=== PATIENT | female | born 1940 | race Caucasian/White ===

== ENCOUNTER 2016-11-13 05:13 | Inpatient (IN) | payer OTHER, MEDICARE ==
[2016-10-24 15:07] VITALS: Ht 170.2 cm; Wt 83.5 kg
--- NOTE | 2016-10-24 15:47 | PAT Medication Instructions ---
Service Date Oct 24, 2016. Current Home Medication List Acetaminophen (Tylenol), 650 MG PO DAILY PRN for Pain Aspirin (Aspirin Ec), 81 MG PO QPM Esomeprazole Magnesium (Nexium), 40 MG PO BID Fish Oil (Worth-3), 1 CAP PO QAM Latanoprost (Xalatan 0.005% Oph Gifty), 1 DROPS OPB HS Loratadine (Claritin), 5 MG PO DAILY PRN for ALLERGIC REACTION Metformin Hcl (Glucophage), 500 MG PO QAM Metoprolol Succinate (Toprol Xl), 25 MG PO QPM Multiple Vitamins W/ Minerals (Centrum Silver Ultra Wome), 1 TAB PO QAM Potassium Chloride (Micro-K Ext Rel), 10 MEQ PO BID Ranitidine (Zantac), 150 MG PO DAILY PRN for Anxiety Valsartan/Hctz (Diovan Hct 160MG/12.5MG), 1 TAB PO QAM Medication Instructions For Your Scheduled Surgery - Hold the following medications 2 weeks prior to surgery: Fish Oil (Worth-3), 1 CAP PO QAM - Hold the following medications 48 hours prior to surgery: Metformin Hcl (Glucophage), 500 MG PO QAM - Hold the following medications the morning of surgery: Potassium Chloride (Micro-K Ext Rel), 10 MEQ PO BID Ranitidine (Zantac), 150 MG PO DAILY PRN for Anxiety Multiple Vitamins W/ Minerals (Centrum Silver Ultra Wome), 1 TAB PO QAM Loratadine (Claritin), 5 MG PO DAILY PRN for ALLERGIC REACTION Valsartan/Hctz (Diovan Hct 160MG/12.5MG), 1 TAB PO QAM - Take the following medications the morning of surgery with a sip of water: Acetaminophen (Tylenol), 650 MG PO DAILY PRN for Pain (if needed) Esomeprazole Magnesium (Nexium), 40 MG PO BID - Take the following medications as scheduled the night before surgery: Potassium Chloride (Micro-K Ext Rel), 10 MEQ PO BID Ranitidine (Zantac), 150 MG PO DAILY PRN for Anxiety (if needed) Loratadine (Claritin), 5 MG PO DAILY PRN for ALLERGIC REACTION (if needed) Latanoprost (Xalatan 0.005% Oph Gifty), 1 DROPS OPB HS Aspirin (Aspirin Ec), 81 MG PO QPM (okay ot continue per surgeon) Esomeprazole Magnesium (Nexium), 40 MG PO BID Acetaminophen (Tylenol), 650 MG PO DAILY PRN for Pain (if needed) Metoprolol Succinate (Toprol Xl), 25 MG PO QPM If you have any questions please call us at [phone] or [phone] or [phone]
[2016-10-24 15:58] LABS: BASO % 0.3 %; BASO ABS # 0.02 K/uL (0-0.2); COMPLETE YES; EOS % 3.3 %; HEMATOCRIT 40.9 % (37-47); IG% 0.1 %; LYMPH % 32.8 %; LYMPH ABS # 2.46 K/uL (1.2-3.4); MEAN CELL VOLUME 93.2 fL (80-100); MEAN CORPUSCULAR HEMOGLOBIN 31.9 pg (25-34); MEAN CORPUSCULAR HGB CONC 34.2 g/dl (32-36); MEAN PLATELET VOLUME 9.5 fL (7.4-10.4); MONO % 6.8 %; NEUT % 56.7 %; PLATELET COUNT 224 K/uL (130-400); RED BLOOD COUNT 4.39 M/uL (4.2-5.4); WHITE BLOOD COUNT 7.49 K/uL (4.8-10.8)
[2016-10-24 15:58] LABS: URINE APPEARANCE CLEAR (CLEAR); URINE BILIRUBIN NEG (NEG); URINE COLOR YELLOW; URINE NITRITE NEG (NEG); URINE PH 5.5 (4.5-7.5); URINE SPECIFIC GRAVITY 1.015 (1.000-1.030); UROBILINOGEN NEG (NEG)
[2016-10-24 16:01] LABS: MANUAL MICROSCOPIC REQUIRED? NO; REVIEW REQ? NO
[2016-10-24 16:06] LABS: BUN/CREATININE RATIO 15.9 (10-20); CALCIUM 9.2 mg/dl (8.5-10.1); CREATININE 0.95 mg/dl (0.60-1.20)
[2016-10-24 16:09] LABS: PROTHROMBIN TIME (PATIENT) 10.4 SECONDS (9.0-12.0)
[2016-10-25 07:32] LABS: ESTIMATED AVERAGE GLUCOSE 137 mg/dl; HA1C FLAG Normal (Normal)
--- NOTE | 2016-11-11 19:24 | HISTORY & PHYSICAL EXAMINATION ---
DATE OF ADMISSION: 11/13/2016 HISTORY OF PRESENT ILLNESS: The patient presents Mary Reina for bilateral total knee arthroplasties. 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 She has failed attempts at conservative management including physical therapy, anti-inflammatories, relative rest, activity modification and presents for left and right total knee arthroplasty after failing conservative management. FAMILY HISTORY: Otherwise unremarkable and noncontributory. SOCIAL HISTORY: The patient denies a history of smoking, alcohol or recreational drug use. PAST SURGICAL HISTORY: Significant for tubal ligation, hysterectomy, previous oral surgery. ALLERGIES: Include some pain medications, almonds, ____ IODINE DYE. MEDICATIONS: Include atenolol 25 mg b.i.d., Diovan 160/25 mg p.o. q.a.m., potassium 10 mEq p.o. daily, metformin 500 mg p.o. q.a.m., fish oil daily, aspirin, p.r.n. REVIEW OF SYSTEMS: ____ pertinent positives. PAST MEDICAL HISTORY: Significant for hypertension, hypercholesterolemia and diabetes. PHYSICAL EXAMINATION: GENERAL: Reveals a very pleasant 76-year-old female, alert and oriented x3, with no acute distress. HEENT: Unremarkable, atraumatic, normocephalic. HEART: Regular at 70 beats per minute. No murmurs noted. LUNGS: Clear. No rales, rhonchi, or wheezes noted. ABDOMEN: Soft ____ bowel sounds present in all 4 quadrants. RECTAL: No rectal examination was performed. MUSCULOSKELETAL: She has severe end-stage tricompartmental degenerative disease of bilateral knees. IMPRESSION AND PLAN: She has failed attempts at conservative management including physical therapy, anti-inflammatories, relative rest ____ and presents for total knee arthroplasty after failing the above conservative management. The patient presents for total knee arthroplasty, bilaterally. Postoperative pain management, DVT prophylaxis will be required and evaluated on an as-needed basis.
[2016-11-13] VITALS (8 sets, daily range): BP systolic 116–161; BP diastolic 69–95; PULSE 57–75; TEMP 36.3–36.8; O2SAT 91–99
[~2016-11-13] VITALS: Ht 170.2 cm; Wt 83.5 kg
[~2016-11-13 05:13] MED LIST: ACET-1311 PO; ASPI81TA28 PO; CLR10 PO; GLC/500 PO; LATA0.5S OPB; METO25TA3 PO; MULT-614 PO; NXM/40 PO; OMEG10007 PO; POTA10CA28 PO; VALS160T58 PO; ZNTT/150 PO
[2016-11-13] MEDS ORDERED: METOCLOPRAMIDE HCL 10 MG TAB PO SCH (06:00)
[2016-11-13] MEDS ORDERED: ACETAMINOPHEN 500 MG TAB PO SCH (06:00)
[2016-11-13] MEDS ORDERED: GABAPENTIN 300 MG CAP PO SCH (06:00)
[2016-11-13] MEDS ORDERED: ROPIVACAINE 5MG/ML 30 ML 150 MG, BUPIVACAINE/EPINEPHR 0.5% MPF 30 ML, KETOROLAC TROMETH... INFIL SCH ×7 (06:00)
[2016-11-13] MEDS ORDERED: LACTATED RINGER'S 1000ML 1,000 ML IV SCH (06:00)
[2016-11-13] MEDS ORDERED: FAMOTIDINE 20 MG TAB PO SCH (06:00)
[2016-11-13] MEDS ORDERED: CEFAZOLIN 2000 MG/60 ML D5W IV SCH (06:00)
[2016-11-13] MEDS ORDERED: LACTATED RINGER'S 1000ML IV SCH (06:00)
[2016-11-13] MEDS ORDERED: LACTATED RINGER'S 1000ML 500 ML IV SCH (06:00)
[2016-11-13] MEDS: ROPIVACAINE 5MG/ML 30 ML 150 MG, BUPIVACAINE/EPINEPHR 0.5% MPF 30 ML, KETOROLAC TROMETH... INFIL SCH ×14 (06:01→09:00)
[2016-11-13] MEDS: TRANEXAMIC ACID INJ 1,000 MG in SODIUM CHLORIDE 0.9% 100ML 100 ML IV SCH ×2 (06:30→07:39)
[2016-11-13] MEDS ORDERED: BUPIVACAINE 0.25% 30 ML VIAL ONE (06:36)
[2016-11-13] MEDS ORDERED: BUPIVACAINE 0.5 % 5 MG/1 ML PF 10ML VIAL ONE (06:36)
[2016-11-13] MEDS ORDERED: LIDOCAINE HCL 2% 2 ML VIAL (20MG/ML) ONE (06:40)
[2016-11-13] MEDS ORDERED: MIDAZOLAM HCL 1 MG/ML 2ML VIAL ONE ×3 (06:40→08:51)
[2016-11-13] MEDS ORDERED: PROPOFOL IV EMULSION 10 MG/ML 20 ML VIAL IV ONE (06:40)
[2016-11-13] MEDS ORDERED: BACITRACIN 50000 UNIT VIAL ONE (06:52)
[2016-11-13] MEDS ORDERED: POVIDONE-IODINE OP SOLN 30 ML BTL ONE (06:52)
[2016-11-13] MEDS ORDERED: ORTHO JOINT ANESTHETIC ONE (06:52)
--- NOTE | 2016-11-13 07:07 | History & Physical Bridge Note ---
H&P Re-Evaluation Bridge Note: I have examined the patient, reviewed the History & Physical and in the interval since the performance of the History & Physical I have noted the following changes of clinical significance: No changes noted
[2016-11-13] MEDS ORDERED: DiphenhydrAMINE HCL 50 MG/ML VIAL ONE (08:35)
[2016-11-13] MEDS ORDERED: ONDANSETRON INJ 2 MG/ML 2 ML VIAL IV PRN ×2 (08:45→11:15)
[2016-11-13] MEDS ORDERED: EpHEDrine SULFATE INJ 50 MG/ML AMP IV PRN (08:45)
[2016-11-13] MEDS ORDERED: ATROPINE SULFATE 0.1 MG/ML 5ML SYR IV PRN (08:45)
--- NOTE | 2016-11-13 10:15 | [facility] Operative Report ---
Operative Report Operative Date Nov 13, 2016. Pre-Operative Diagnosis Severe End-Stage Tricompartmental Degenerative Disease of Bilateral Knees Post-Operative Diagnosis Severe End-Stage Tricompartmental Degenerative Disease of Bilateral Knees Procedure(s) Performed Bilateral Total Knee Arthroplasty utilizing Allred & Nephew journey 2 long block total knee arthroplasty right size 4 femur 3 tibia 10 Cha 32 oval patella left size 4 femur 3 tibia Cha [address] David Hamlin Continuous Crusher Operator Surgeon(s) Clotilde VILLALOBOSC Estimated Blood Loss 5cc for left knee; 5cc for right knee Findings Presents with severe degenerative joint disease bilaterally she's failed CONSERVATIVE management including physical therapy and anti-inflammatories relative rest activity modification transferred total knee arthroplasty bilaterally Specimens Permanent: A. Left Knee Bone and Tissue B. Right Knee Bone and Tissue Complication(s) None Disposition Recovery Room / PACU Indications Patient presents after failing attempts at conservative management for her bilateral varus alignment DJD knees presents for bilateral total knee arthroplasty failing attempts at conservative management injections cortical steroid injections viscous supplementations relative rest and bracing Description of Procedure After proper prepping and draping of the bilateral lower extremities, an anterior midline incision was made over the region of the extensor extensor mechanism of the left knee. After meticulous hemostasis was obtained and maintained in subcutaneous tissues a medial parapatellar incision was made The patella was subluxed lateralward the medial lateral gutter were cleaned from any hypertrophic synovitis and scar tissue of the distal femoral block was placed and the distal femoral osteotomy cut was made subsequently the chamfers anterior and posterior osteotomy cuts were made utilizing the 4-in-1 block the tibia was subsequently subluxed anteriorward medial and ateral meniscal remnants were excised in their entirety remnants of the anterior and posterior cruciate ligaments were excised in their entirety excellent exposure of the proximal tibia was obtained the tibial osteotomy guide was placed on the proximal tibial osteotomy cut was made once again the knee was irrigated with copious amounts of sterile saline solution the patella was subsequently everted lateralward thickened scar tissue around the patella was removed the patella was subsequently cut utilizing a freehand technique and was drilled prepared for final preparation and placement of patella socially flexion-extension gaps were checked and the equal and symmetric trials were placed to the appropriate femoral and tibial trials with poly-spacer being placed for equal flexion and extension gaps and full range of motion including extension to 0 and flexion to 140 the trial components after having been taken to recovery range of motion was subsequently removed meticulous hemostasis was obtained and maintained subsequently a knee block injection of joint cocktail including ropivacaine 0.5 % 150 mg. Bupivacaine 0.5% epinephrine 1-200,030 mL's toradol 30 mg dexamethasone 4 mg ketamine 10 mg clonidine 100 micrograms normal saline solution 30 mg was infiltrated into the soft tissues of the posterior knee medial lateral gutters and periosteal synovium special attention was paid to protect neurovascular structures at all times subsequently trial components having been removed the knee was irrigated with sterile saline solution. debris was removed the proximal tibia was subsequently prepared and was made ready for the placement of the tibial component tibial component was also cemented and tamped into position the femoral component was subsequently placed and cemented in the position the patellar component was subsequently cemented in position because hemostasis once again obtained and maintained wound having been thoroughly irrigated with debridement and debridement lavage was performed as well as a medial parapatellar incision closed with #1 Vicryl in interrupted fashion subcutaneous was closed with #2 Vicryl skin was closed with skin clips Next, an anterior midline incision was made over the region of the extensor extensor mechanism of the right knee. After meticulous hemostasis was obtained and maintained in subcutaneous tissues a medial parapatellar incision was made The patella was subluxed lateralward the medial lateral gutter were cleaned from any hypertrophic synovitis and scar tissue of the distal femoral block was placed and the distal femoral osteotomy cut was made subsequently the chamfers anterior and posterior osteotomy cuts were made utilizing the 4-in-1 block the tibia was subsequently subluxed anteriorward medial and ateral meniscal remnants were excised in their entirety remnants of the anterior and posterior cruciate ligaments were excised in their entirety excellent exposure of the proximal tibia was obtained the tibial osteotomy guide was placed on the proximal tibial osteotomy cut was made once again the knee was irrigated with copious amounts of sterile saline solution the patella was subsequently everted lateralward thickened scar tissue around the patella was removed the patella was subsequently cut utilizing a freehand technique and was drilled prepared for final preparation and placement of patella socially flexion-extension gaps were checked and the equal and symmetric trials were placed to the appropriate femoral and tibial trials with poly-spacer being placed for equal flexion and extension gaps and full range of motion including extension to 0 and flexion to 140 the trial components after having been taken to recovery range of motion was subsequently removed meticulous hemostasis was obtained and maintained subsequently a knee block injection of joint cocktail including ropivacaine 0.5 % 150 mg. Bupivacaine 0.5% epinephrine 1-200,030 mL's toradol 30 mg dexamethasone 4 mg ketamine 10 mg clonidine 100 micrograms normal saline solution 30 mg was infiltrated into the soft tissues of the posterior knee medial lateral gutters and periosteal synovium special attention was paid to protect neurovascular structures at all times subsequently trial components having been removed the knee was irrigated with sterile saline solution. debris was removed the proximal tibia was subsequently prepared and was made ready for the placement of the tibial component tibial component was also cemented and tamped into position the femoral component was subsequently placed and cemented in the position the patellar component was subsequently cemented in position because hemostasis once again obtained and maintained wound having been thoroughly irrigated with debridement and debridement lavage was performed as well as a medial parapatellar incision closed with #1 Vicryl in interrupted fashion subcutaneous was closed with #2 Vicryl skin was closed with skin clips.. PA-C was necessary for prepping and drapping as well as wound closure of deep fascia Sub cutaneous tissue and skin and was necessary for the case. A sterile compressive dressings were placed, patient was taken to recovery in stable condition of report dictated by Boubacar I attest to the content of the Intraoperative Record and any orders documented therein. Any exceptions are noted below. I attest to the content of the Intraoperative Record and any orders documented therein. Any exceptions are noted below.
[2016-11-13] MEDS ORDERED: MEPERIDINE HCL 25 MG/ML CARP ONE (10:52)
[2016-11-13] MEDS ORDERED: MEPERIDINE HCL 25 MG/ML CARP IV PRN (11:00)
[2016-11-13] MEDS ORDERED: D5W AND 1/2NSS + 20MEQ KCL 1,000 ML IV SCH (11:05)
[2016-11-13] MEDS ORDERED: MAGNESIUM HYDROXIDE SUSP 30 ML UDC PO PRN (11:15)
[2016-11-13] MEDS ORDERED: SOD PHOSPHATE/SOD BIPHOSPHATE ENEMA 132 ML BTL PR PRN (11:15)
[2016-11-13] MEDS ORDERED: ALUMINUM/MAGNESIUM/SIMETH (MAALOX MAX) 30 ML UDC PO PRN (11:15)
[2016-11-13] MEDS ORDERED: BISACODYL 10 MG SUPP PR PRN (11:15)
[2016-11-13] MEDS ORDERED: ZOLPIDEM TARTRATE 5 MG TAB PO PRN (11:15)
--- NOTE | 2016-11-13 11:26 | Anesthesiology Progress Note ---
Anesthesia Post Op Note Date & Time Nov 13, 2016 at 11:26 Vital Signs Pain Intensity: 0 Vital Signs Past 12 Hours Date Time Temp Pulse Resp B/P (MAP) Pulse Ox O2 Delivery O2 Flow Rate FiO2 11/13/16 11:15 36.7 56 12 121/67 96 Nasal Cannula 2 11/13/16 11:00 58 12 119/71 97 Nasal Cannula 2 11/13/16 10:50 61 12 130/62 99 Nasal Cannula 2 11/13/16 10:41 36.0 56 16 145/70 98 Nasal Cannula 2 11/13/16 06:20 36.7 63 18 161/95 96 Room Air Notes Mental Status: alert / awake / arousable, participated in evaluation Pt Amnestic to Procedure: Yes Nausea / Vomiting: adequately controlled Pain: adequately controlled Airway Patency, RR, SpO2: stable & adequate BP & HR: stable & adequate Hydration State: stable & adequate Neuraxial Anesthesia: was administered, sensory block is resolving Anesthetic Complications: no major complications apparent
--- NOTE | 2016-11-13 11:53 | DIAGNOSTIC IMAGING REPORT ---
LEFT KNEE 2 VIEWS History: Left total knee arthroplasty. Degenerative arthritis. Postop. FINDINGS: The patient is status post a left total knee arthroplasty. The hardware is intact. No fracture or dislocation. Surgical drains are in place. IMPRESSION: Left total knee arthroplasty. No evidence for hardware complication. Electronically signed by: Iam Young M.D. 11/13/2016 11:52 AM Dictated Date/Time: 11/13/2016 11:52 AM
[2016-11-13] MEDS ORDERED: PHARMACY GLYCEMIC MGMT CONSULT PRN (11:54)
--- NOTE | 2016-11-13 12:00 | DIAGNOSTIC IMAGING REPORT ---
RIGHT KNEE 2 VIEWS History: Right total knee arthroplasty. Degenerative arthritis. Postop. FINDINGS: The patient is status post a right total knee arthroplasty. The hardware is intact. No fracture or dislocation. Surgical drains are in place. IMPRESSION: Right total knee arthroplasty. No evidence for hardware complication. Electronically signed by: Iam Young M.D. 11/13/2016 11:59 AM Dictated Date/Time: 11/13/2016 11:58 AM
[2016-11-13] MEDS: SODIUM CHLORIDE 0.9% 1000ML 1,000 ML IV SCH ×2 (13:24→22:37)
[2016-11-13] MEDS: ACETAMINOPHEN 500 MG TAB PO SCH ×2 (13:45→21:31)
[2016-11-13] MEDS: INSULIN ASPART 100 UNITS/ML 3 ML PEN SC SCH ×3 (13:47→21:44)
--- NOTE | 2016-11-13 13:58 | Pharmacy Progress Note ---
Glycemic Control Intl Consult Date of Service Nov 13, 2016. Scope Glycemic Pharmacist consulted by Clotilde Alvares on 11/13/16 for glycemic control and to write orders per [facility] inpatient glycemic control protocol Objective Weight (Kilograms): 83.500 Accuchecks BSG (last 24hrs): Test 11/13/16 06:09 11/13/16 10:48 11/13/16 12:03 Bedside Glucose 106 mg/dl (70-90) 95 mg/dl (70-90) 106 mg/dl (70-90) HbA1c Test 10/24/16 14:56 Hemoglobin A1c 6.4 % (4.5-5.6) H Recent Pertinent Medications Outpatient Anti-diabetic Regimen: * metformin 500 mg daily Risk Factors for Insulin Resistance: * Steroids: dexamethasone 4 mg topically * IVF: NS @ 100 mls/hr * Recent Surgery: POD 0 for bilateral knee replacement * Diet: type 2 diabetic diet Assessment & Plan ASSESSMENT: * ADA & AACE recommend a goal blood sugar range 140-180 mg/dl for the majority of critically ill & non-critically ill patients. However, more stringent targets may be selected in individual cases. Will utilize more stringent goal of 110-140 mg/dl based on patient age & comorbidities. Additionally, tighter glycemic control is warranted to facilitate wound healing. * Ms Reina is a 76 y/o F with a PMH of HTN and diabetes. She is well- controlled on oral agents for diabetes. This morning, she had bilateral knee replacements. Her blood sugar remained well controlled prior to surgery at 106 mg/dL. * As patient is well controlled on oral therapy and received topical dexamethasone during surgery, it is unknown how the patient's blood sugar will be affected by the surgery. A sliding scale of Lantus was scheduled this evening to accommodate this uncertainty. * For correctional insulin, weight based stress of 2 was initiated as patient did not receive IV or PO steroids (therefore intensive Novolog parameters were not necessary). An additional 0200 accucheck ordered to ensure no hyperglycemia overnight. * Pt is maintained on oral antidiabetic agents as an outpatient * Oral agents are not recommended for inpatient use d/t drug interactions, changing PO intake, and difficulty titrating for acute hyper/hypoglycemia. ADA recommends re-initiating outpatient oral agents 1-2 days prior to discharge if/ when appropriate if they were held on admission. Plan to restart on POD 2 or 3 based upon patient's oral intake. * Will hold oral agents for admission and utilize SQ basal bolus insulin regimen which is the recommended regimen for inpatient glycemic control. * Will initiate weight based insulin dosing for insulin heydi patient and titrate based on BSG trends. PLAN FOR INPATIENT GLYCEMIC CONTROL: * Holding outpatient oral diabetes medications * Basal insulin with LANTUS 0-15 units SQ HS (blood sugar 140-180 mg/dL give Lantus 10 units, blood sugar greater than 180 mg/dL give 15 units) * Correctional Insulin with NOVOLOG per scale ACHS * Goal Range: Low 110 mg/dL - High 140 mg/dL * Correction Factor: 30 mg/dL/unit * Nutritional / Prandial insulin per carb ratio of 1 unit per 10 grams CHO consumed OUTPATIENT RECOMMENDATIONS * Reasonable to restart metformin prior to discharge as patient appears well controlled. Thank you.
[2016-11-13] MEDS: CEFAZOLIN IV 2,000 MG in DEXTROSE 5% 50ML 50 ML IV SCH ×2 (15:58→23:39)
[2016-11-13] MEDS ORDERED: NURSING VERBAL MED ORDER ONE (17:15)
[2016-11-13] MEDS: OXYCODONE HCL IR 5 MG TAB (IMMEDIATE RELEASE) PO PRN (17:32)
[2016-11-13] MEDS ORDERED: LOPERAMIDE HCL 2 MG CAP PO PRN (17:45)
[2016-11-13] MEDS: SENNA 8.6 MG TAB PO SCH (21:00)
[2016-11-13] MEDS ORDERED: LANTUS PER UNIT CHARGE SQ PRN ×2 (21:00)
[2016-11-13] MEDS: ASPIRIN 81 MG ECTAB PO SCH (21:31)
[2016-11-13] MEDS: METOPROLOL SUCC 25MG EXT REL TAB PO SCH (21:31)
[2016-11-13] MEDS: POTASSIUM CHLORIDE 10 MEQ TABCR PO SCH (21:31)
[2016-11-13] MEDS: LATANOPROST 0.005% OP SOLN 2.5 ML BTL OPB SCH (21:32)
[2016-11-13] MEDS: OXYCODONE HCL 10 MG TABCR (OXYCONTIN) PO SCH (21:39)
[2016-11-14] VITALS (10 sets, daily range): BP systolic 104–131; BP diastolic 55–78; PULSE 54–110; TEMP 36.4–36.9; O2SAT 85–100
[2016-11-14] MEDS ORDERED: INSULIN ASPART 100 UNITS/ML 3 ML PEN SC SCH (02:00)
[2016-11-14] MEDS: OXYCODONE HCL IR 5 MG TAB (IMMEDIATE RELEASE) PO PRN ×2 (02:14→17:36)
[2016-11-14] MEDS ORDERED: ESOMEPRAZOLE MAGNESIUM 40 MG CAP PO SCH (05:00)
[2016-11-14] MEDS ORDERED: PANTOprazole SOD 40 MG TAB PO SCH ×2 (05:00→09:00)
[2016-11-14] MEDS: ACETAMINOPHEN 500 MG TAB PO SCH ×3 (05:43→22:27)
[2016-11-14 07:27] LABS: HEMATOCRIT 32.1 % (37-47); MEAN CELL VOLUME 92.8 fL (80-100); MEAN CORPUSCULAR HEMOGLOBIN 31.2 pg (25-34); MEAN CORPUSCULAR HGB CONC 33.6 g/dl (32-36); MEAN PLATELET VOLUME 9.4 fL (7.4-10.4); PLATELET COUNT 210 K/uL (130-400); RED BLOOD COUNT 3.46 M/uL (4.2-5.4); WHITE BLOOD COUNT 10.33 K/uL (4.8-10.8)
[2016-11-14 07:57] LABS: CALCIUM 8.4 mg/dl (8.5-10.1); CREATININE 1.1 mg/dl (0.60-1.20); POTASSIUM 3.8 mmol/L (3.5-5.1)
[2016-11-14] MEDS: ESOMEPRAZOLE MAGNESIUM 40 MG CAP PO SCH ×2 (08:05→17:32)
--- NOTE | 2016-11-14 08:17 | Orthopedic Progress Note ---
Orthopedic Progress Note Date of Service Nov 14, 2016. Subjective Post OP Day: 1 Reports: feeling well, Denies: chest pain, SOB, nausea / vomiting, light headedness, calf pain Objective calves soft nontender, N/V intact, capillary refill less than 2 sec., dressing C /D/I, A&O x3, toes mobile, hemovac drainage (150/100cc per shift; 125/100cc per shift) Date Time Temp Pulse Resp B/P (MAP) Pulse Ox O2 Delivery O2 Flow Rate FiO2 11/14/16 07:07 36.5 63 18 121/75 (90) 90 Room Air 11/14/16 03:26 36.6 56 16 110/62 (78) 92 Room Air 11/13/16 23:30 Room Air 11/13/16 22:57 36.8 65 16 121/71 (88) 91 Room Air 11/13/16 21:29 75 141/83 (102) 11/13/16 16:00 95 Nasal Cannula 2.0 11/13/16 15:33 36.3 62 16 116/69 (85) 95 Nasal Cannula 2.0 11/13/16 14:42 36.4 65 18 132/72 (92) 98 Room Air 11/13/16 12:21 57 16 136/69 (91) 97 Nasal Cannula 2.0 11/13/16 11:50 36.5 60 16 131/69 (89) 99 Nasal Cannula 2.0 11/13/16 11:50 99 Nasal Cannula 2.0 11/13/16 11:50 Nasal Cannula 2.0 11/13/16 11:30 57 12 121/69 96 Nasal Cannula 2 11/13/16 11:15 36.7 56 12 121/67 96 Nasal Cannula 2 11/13/16 11:00 58 12 119/71 97 Nasal Cannula 2 11/13/16 10:50 61 12 130/62 99 Nasal Cannula 2 11/13/16 10:41 36.0 56 16 145/70 98 Nasal Cannula 2 Laboratory Results 24 Hours: Test 11/14/16 06:32 Hematocrit 32.1 % Hemoglobin 10.8 g/dL Assessment & Plan Assessment: POD#1 SP BL TKAS Inhouse Planning Pain Management: Oxycontin, PO Tylenol, Oxy IR DVT Prophylaxis: TEDs, SCDs, ASA Discharge Planning Discharge Planning: rehab hospital (PATIENT REQUESTING REFERRAL TO [facility].)
--- NOTE | 2016-11-14 08:18 | Discharge Instructions ---
Discharge Instructions Date of Service Nov 14, 2016. Admission Reason for Admission: Bilateral Knee Osteoarthritis Discharge Discharge Diagnosis / Problem: SP BL TKAS Discharge Goals Goal(s): Decrease discomfort, Improve function, Increase independence Activity Recommendations Activity Level: Assistance Required . Additional Information Patient informed of condition: Yes Advance Directives: Yes DNR: No Level of Care: Acute Rehab Communicable Disease: No Prognosis: Stable Instructions / Follow-Up Instructions / Follow-Up ACTIVITY RECOMMENDATIONS: SELF CARE INSTRUCTIONS AFTER TOTAL KNEE REPLACEMENT A. You may need to continue a physical therapy program after discharge from the hospital. There are several options available to you. Your doctor will assist you in selecting the best one for you. 1. An out-patient facility 2 to 3 times a week for therapy or home therapy. 2. Continue working on all exercises taught to you in the hospital. Your goals should be to increase bending of your knee to 90 degrees and beyond and to fully straighten your knee. B. You may progress at your own pace from walking with a walker or crutches to a cane; then to no assistive devices. C. Make walking a part of your daily routine. Be up as much as comfortable with rest periods throughout the day. Rest with leg elevation is very important. Use the ice wrap frequently for the first 3-4 weeks. D. There are no restrictions on activities. You may ride in a car, shop, participate in microsoft dynamics manager architect and all social activities. E. Wear the long elastic stockings (SOURAV hose) 20 hours a day for 2 weeks after surgery. They can be removed several times a day for laundering and for a bath. F. You may shower, no tub baths until cleared by your doctor. SPECIAL CARE INSTRUCTIONS: VERY IMPORTANT TO READ AND REVIEW A. There are a few signs you need to watch for after you are home. Call [facility] if you notice any of the followin. Increased severe knee pain. Some pain is expected especially when you exercise. 2. Increased swelling in your leg or knee; pain or swelling of the calf muscle in either lower leg. 3. Any fluid drainage from the incision. 4. Shortness of breath or chest pain. B. Please call [facility] at if you have any concerns or questions about your operation or recovery. The doctor or his nurse will return your call promptly. C. You must take antibiotics before dental work, bladder, bowel or other surgery. Your doctor will provide you with a permanent care to carry describing this precaution. IMPORTANT: * REMEMBER TO TAKE ASPIRIN, 81 MG, TWICE DAILY FOR 4 WEEKS UNLESS OTHERWISE DIRECTED. THIS IS YOUR BLOOD THINNER. * HIGH RISK PATIENTS MAY BE PRESCRIBED A STRONGER BLOOD THINNER. THIS WILL BE PROVIDED AT DISCHARGE. * CALL IF INCREASED PAIN, REDNESS, DRAINAGE OR FEVER GREATER THAT 101. * WEAR SOURAV HOSE 20 HOURS PER DAY FOR 2 WEEKS. DERMABOND Prineo- This is a mesh tape dressing that is covered with glue. It should remain in place until the incision is properly healed, usually 10-14 days. This dressing is designed to naturally slough off. You may trim the excess mesh tape as it peels off. Incision may be briefly wet in a shower. Dry immediately by blotting with a clean, dry towel. Do not bath or swim until instructed by your doctor. Do not scratch, rub, or pick at the dressing. Do not apply any topical ointments or lotions until dressing is completely removed and/or instructed by your doctor. There may be a small piece of suture material at one end of your incision. Do not pull or trim this. If it is bothersome or catching on clothing, you may cover it with a band-aid. FOLLOW UP VISIT: If appointment is not already scheduled: Please call [facility] to make a follow-up appointment for 2 weeks after your surgery at . Current Hospital Diet Patient's current hospital diet: Diabetes Type 2 Diet Discharge Diet Recommended Diet: Regular Diet Procedures Procedures Performed: Bilateral Total Knee Arthroplasty utilizing Allred & Nephew journey 2 long block total knee arthroplasty right size 4 femur 3 tibia 10 Cha 32 oval patella left size 4 femur 3 tibia Cha 32 oval patella Pending Studies Studies pending at discharge: no Laboratory Results Hemoglobin A1c Test 10/24/16 14:56 Range/Units Estimated Average Glucose 137 mg/dl Hemoglobin A1c 6.4 H 4.5-5.6 % Medical Emergencies . Who to Call and When: Medical Emergencies: If at any time you feel your situation is an emergency, please call 911 immediately. . Non-Emergent Contact Non-Emergency issues call your: Surgeon . . "Provider Documentation" section prepared by Clotilde Alvares. . Core Measure Problem Core Measures: None [place] Drug Monitoring Program Search Results: patient reviewed within database, no issues identified
--- NOTE | 2016-11-14 08:24 | Anesthesiology Progress Note ---
Anesthesia Post Op Note Date & Time Nov 14, 2016 at 08:24 Vital Signs Pain Intensity: 5.0 Vital Signs Past 12 Hours Date Time Temp Pulse Resp B/P (MAP) Pulse Ox O2 Delivery O2 Flow Rate FiO2 11/14/16 07:07 36.5 63 18 121/75 (90) 90 Room Air 11/14/16 03:26 36.6 56 16 110/62 (78) 92 Room Air 11/13/16 23:30 Room Air 11/13/16 22:57 36.8 65 16 121/71 (88) 91 Room Air 11/13/16 21:29 75 141/83 (102) Notes Mental Status: alert / awake / arousable, participated in evaluation Pt Amnestic to Procedure: Yes Nausea / Vomiting: adequately controlled Pain: adequately controlled Airway Patency, RR, SpO2: stable & adequate BP & HR: stable & adequate Hydration State: stable & adequate Neuraxial Anesthesia: was administered, sensory block resolved Anesthetic Complications: no major complications apparent
[2016-11-14] MEDS ORDERED: LANTUS PER UNIT CHARGE SQ ONE (09:00)
[2016-11-14] MEDS ORDERED: VALSARTAN/HCTZ 160/12.5 MG TAB PO SCH (09:00)
[2016-11-14] MEDS: OXYCODONE HCL 10 MG TABCR (OXYCONTIN) PO SCH ×2 (09:07→22:27)
[2016-11-14] MEDS: SODIUM CHLORIDE 0.9% 1000ML 1,000 ML IV SCH (09:07)
[2016-11-14] MEDS: HYDROCHLOROTHIAZIDE 25 MG TAB PO SCH (09:08)
[2016-11-14] MEDS: POTASSIUM CHLORIDE 10 MEQ TABCR PO SCH ×2 (09:08→21:10)
[2016-11-14] MEDS: VALSARTAN 80 MG TAB PO SCH (09:09)
[2016-11-14] MEDS: ASPIRIN 81 MG ECTAB PO SCH ×2 (09:10→21:11)
[2016-11-14] MEDS: MULTIVITAMIN TAB PO SCH (09:11)
[2016-11-14] MEDS: INSULIN ASPART 100 UNITS/ML 3 ML PEN SC SCH ×4 (09:20→21:00)
[2016-11-14] MEDS: DiphenhydrAMINE HCL 50 MG/ML VIAL IV PRN (18:26)
[2016-11-14] MEDS: MoRPHine SULFATE 2 MG/ML CARP IV PRN (20:28)
[2016-11-14] MEDS: LATANOPROST 0.005% OP SOLN 2.5 ML BTL OPB SCH (21:11)
[2016-11-14] MEDS: SENNA 8.6 MG TAB PO SCH (21:11)
[2016-11-14] MEDS: METOPROLOL SUCC 25MG EXT REL TAB PO SCH (21:16)
[2016-11-14] MEDS: LORATADINE 10 MG TAB PO PRN (21:35)
[2016-11-14] MEDS: RANITIDINE HCL 150 MG TAB PO PRN (21:35)
--- NOTE | 2016-11-14 22:55 | DIAGNOSTIC IMAGING REPORT ---
CHEST ONE VIEW PORTABLE CLINICAL HISTORY: Shortness of breath. COMPARISON STUDY: No previous studies for comparison. FINDINGS: Lung volumes are normal. There is no pneumothorax or pleural effusion. There is no evidence of pulmonary edema. Cardiac size is within normal limits. Patient is mildly rotated. Note is made of an apparent 2.3 cm irregular right infrahilar opacity. IMPRESSION: 1. 2.3 cm irregular right infrahilar opacity. This could reflect normal vessels, minimal airspace disease or a pulmonary nodule. Follow-up PA and shallow oblique radiographs of the chest are recommended. 2. No evidence of pulmonary edema. Electronically signed by: Kwaku Hardy M.D. 11/14/2016 10:54 PM Dictated Date/Time: 11/14/2016 10:52 PM
[2016-11-14 22:56] LABS: HEMATOCRIT 29.8 % (37-47); MEAN CELL VOLUME 91.7 fL (80-100); MEAN CORPUSCULAR HEMOGLOBIN 31.4 pg (25-34); MEAN CORPUSCULAR HGB CONC 34.2 g/dl (32-36); MEAN PLATELET VOLUME 9.4 fL (7.4-10.4); PLATELET COUNT 206 K/uL (130-400); RED BLOOD COUNT 3.25 M/uL (4.2-5.4); WHITE BLOOD COUNT 10.48 K/uL (4.8-10.8)
[2016-11-14 22:57] LABS: ALB/GLOB RATIO 1.1 (0.9-2); BUN/CREATININE RATIO 19.7 (10-20); CALCIUM 7.9 mg/dl (8.5-10.1); CREATININE 0.99 mg/dl (0.60-1.20); POTASSIUM 3.7 mmol/L (3.5-5.1)
--- NOTE | 2016-11-14 23:37 | Progress Note ---
Progress Note Date of Service Nov 14, 2016. Progress Note 76 y/o F s/p bilateral TKA surgery was paged by RN about dropping sats to 80s and tachycardia. she was on a oxymask with 4 l of O2 and satting in late 80s patient was seen and EKG, CXR and CBC, CMP, troponin were ordered - EKG revealed tachycardia with no significant changes - HGb was 10.2 from 10.4 in the morning - chest CTA was considered as patient was hypoxic and s/p TKA but she is allergic to iodinated agents - venous Doppler ordered, consider v/q scan or echo in am if continues to be hypoxic - moved patient to telemetry Resident Tracking Resident Involvement: Digital Editor Coverage Note Care Provided: Adult Hospital Medicine
[2016-11-15] VITALS (11 sets, daily range): BP systolic 99–137; BP diastolic 58–70; PULSE 69–73; TEMP 36.6–37.3; O2SAT 95–98
[2016-11-15] MEDS: DiphenhydrAMINE HCL 50 MG/ML VIAL IV PRN ×2 (04:08→13:11)
[2016-11-15] MEDS: MoRPHine SULFATE 2 MG/ML CARP IV PRN (04:24)
[2016-11-15 06:06] LABS: HEMATOCRIT 31.1 % (37-47); MEAN CORPUSCULAR HEMOGLOBIN 31.1 pg (25-34); MEAN CORPUSCULAR HGB CONC 33.1 g/dl (32-36); MEAN PLATELET VOLUME 9.2 fL (7.4-10.4); PLATELET COUNT 183 K/uL (130-400); RED BLOOD COUNT 3.31 M/uL (4.2-5.4); WHITE BLOOD COUNT 7.25 K/uL (4.8-10.8)
[2016-11-15] MEDS: OXYCODONE HCL IR 5 MG TAB (IMMEDIATE RELEASE) PO PRN (06:07)
[2016-11-15 06:40] LABS: BUN/CREATININE RATIO 16.9 (10-20); CALCIUM 7.9 mg/dl (8.5-10.1); CREATININE 1.1 mg/dl (0.60-1.20)
--- NOTE | 2016-11-15 06:49 | DIAGNOSTIC IMAGING REPORT ---
VENOUS DOPPLER LW EXT BILAT HISTORY: Pain. Edema. sob, tachy, r/o DVT COMPARISON STUDY: None. FINDINGS: There is normal compressibility, flow, and augmentation within the bilateral lower extremity deep venous systems. IMPRESSION: No DVT within the right or left lower extremity. The above report was generated using voice recognition software. It may contain grammatical, syntax or spelling errors. Electronically signed by: Tacos Irwin M.D. 11/15/2016 6:47 AM Dictated Date/Time: 11/15/2016 6:47 AM
[2016-11-15] MEDS ORDERED: METFORMIN HCL 500 MG TAB PO SCH (07:30)
[2016-11-15] MEDS: OXYCODONE HCL 10 MG TABCR (OXYCONTIN) PO SCH ×2 (07:34→20:53)
[2016-11-15] MEDS: ACETAMINOPHEN 500 MG TAB PO SCH ×3 (07:35→22:06)
[2016-11-15] MEDS: ASPIRIN 81 MG ECTAB PO SCH ×2 (07:35→20:49)
[2016-11-15] MEDS: HYDROCHLOROTHIAZIDE 25 MG TAB PO SCH (07:35)
[2016-11-15] MEDS: VALSARTAN 80 MG TAB PO SCH (07:36)
[2016-11-15] MEDS: MULTIVITAMIN TAB PO SCH (07:37)
[2016-11-15] MEDS: POTASSIUM CHLORIDE 10 MEQ TABCR PO SCH ×2 (07:37→20:50)
[2016-11-15] MEDS: ESOMEPRAZOLE MAGNESIUM 40 MG CAP PO SCH ×2 (07:38→16:03)
[2016-11-15] MEDS: INSULIN ASPART 100 UNITS/ML 3 ML PEN SC SCH ×4 (07:45→20:57)
--- NOTE | 2016-11-15 08:05 | Orthopedic Progress Note ---
Orthopedic Progress Note Date of Service Nov 15, 2016. Subjective Post OP Day: 2 Denies: chest pain, SOB, nausea / vomiting, light headedness, calf pain Objective N/V intact, capillary refill less than 2 sec., incision C/D/I, A&O x3, toes mobile left knee hemovac snapped while pulling drain at first hole. Date Time Temp Pulse Resp B/P (MAP) Pulse Ox O2 Delivery O2 Flow Rate FiO2 11/15/16 04:00 Nasal Cannula 4.0 11/15/16 03:52 36.8 69 80 99/58 (72) 96 Nasal Cannula 3.0 11/15/16 00:10 37.3 70 20 103/58 (73) 95 Oxymask 3.0 11/14/16 21:15 87 129/68 (88) 91 Mask 3.0 11/14/16 21:10 110 14 87 Mask 3.0 11/14/16 21:10 88 12 129/68 (88) 87 Mask 3.0 11/14/16 20:10 85 Room Air 11/14/16 20:10 36.9 95 113/64 (80) 85 Room Air 11/14/16 17:09 36.7 65 17 104/55 (71) 97 Room Air 11/14/16 16:25 Room Air 11/14/16 16:14 36.6 56 16 131/76 (94) 99 Room Air 11/14/16 12:29 36.4 58 17 126/78 (94) 100 Nasal Cannula 2.0 11/14/16 11:31 36.4 54 18 123/74 (90) 100 Nasal Cannula 2.0 11/14/16 11:02 36.5 58 18 116/67 (83) 93 Room Air Laboratory Results 24 Hours: Test 11/14/16 22:15 11/15/16 05:51 Hematocrit 29.8 % 31.1 % Hemoglobin 10.2 g/dL 10.3 g/dL Assessment & Plan Assessment: POD#2 SP BL TKAS -transferred to telemetry due to shortness of breath -left hemovac snapped while attempting to pull, will keep NPO and plan for arthrotomy and removal of drain this afternoon. Discharge Planning Discharge Planning: rehab hospital (PATIENT REQUESTING REFERRAL TO [facility].)
[2016-11-15] MEDS: LORATADINE 10 MG TAB PO PRN (08:11)
[2016-11-15] MEDS: RANITIDINE HCL 150 MG TAB PO PRN (08:11)
--- NOTE | 2016-11-15 09:17 | DIAGNOSTIC IMAGING REPORT ---
LEFT KNEE 2 VIEWS CLINICAL HISTORY: Postoperative examination. Drain fragment in the left knee. FINDINGS: AP and crosstable lateral views of the left knee are compared to study dated 11/13/2016. The skeletal structures are osteopenic. No fracture is seen. A left knee arthroplasty is in near-anatomic alignment. There has been undersurface remodeling of the patella. There is an approximately 3 cm drain fragment identified in the suprapatellar region. A small joint effusion is noted. Soft tissue swelling is present around the knee. IMPRESSION: 1. No acute bony amount is seen in the left knee. 2. An approximately 3 cm surgical drain fragment is present in the suprapatellar region. 3. Soft tissue swelling and joint effusion. Electronically signed by: Jose Carrillo M.D. 11/15/2016 9:16 AM Dictated Date/Time: 11/15/2016 9:14 AM
--- NOTE | 2016-11-15 11:04 | Pharmacy Progress Note ---
Glycemic Control Progress Note Date of Service Nov 15, 2016. Scope Glycemic Pharmacist consulted for glycemic control to write orders per [facility] inpatient glycemic control protocol. Objective Accuchecks BSG (last 24hrs): Test 11/14/16 12:47 11/14/16 18:03 11/14/16 20:34 11/14/16 22:15 Bedside Glucose 137 mg/dl (70-90) 110 mg/dl (70-90) 137 mg/dl (70-90) Random Glucose 139 mg/dl (70-99) Test 11/15/16 05:51 11/15/16 06:41 Random Glucose 117 mg/dl (70-99) Bedside Glucose 112 mg/dl (70-90) Recent Pertinent Medications Outpatient Anti-diabetic Regimen: * metformin 500 mg daily Risk Factors for Insulin Resistance: * Recent Surgery: POD 2 for bilateral knee replacement * Diet: type 2 diabetic diet, changed to NPO now for drain break Outpatient Anti-Diabetic Meds see above Assessment & Plan ASSESSMENT: * ADA & AACE recommend a goal blood sugar range 140-180 mg/dl for the majority of critically ill & non-critically ill patients. However, more stringent targets may be selected in individual cases. Will utilize more stringent goal of 110-140 mg/dl based on patient age & comorbidities. Additionally, tighter glycemic control is warranted to facilitate wound healing. * Ms Reina is a 76 y/o F with a PMH of HTN and diabetes. She is well- controlled on oral agents for diabetes and is POD 2 for bilateral knee replacements. * Fasting blood sugar was 117 mg/dL. This is decreased from 134 mg/dL yesterday. Held Lantus today as effects of steroids most likely waning. Now patient is also NPO for repair of KARIS drain. * Blood sugars range from 110-137 mg/dL. Continue current parameters for correctional insulin. Total daily dose now decreased from 17 units to 15 units daily. * Pt is maintained on oral antidiabetic agents as an outpatient * Oral agents are not recommended for inpatient use d/t drug interactions, changing PO intake, and difficulty titrating for acute hyper/hypoglycemia. ADA recommends re-initiating outpatient oral agents 1-2 days prior to discharge if/ when appropriate if they were held on admission. Plan to restart on POD 2 or 3 based upon patient's oral intake. * Did restart oral medication today but now since patient NPO hold until diet re-established. PLAN FOR INPATIENT GLYCEMIC CONTROL: * Holding outpatient oral diabetes medications * Correctional Insulin with NOVOLOG per scale ACHS * Goal Range: Low 110 mg/dL - High 140 mg/dL * Correction Factor: 30 mg/dL/unit * Nutritional / Prandial insulin per carb ratio of 1 unit per 10 grams CHO consumed OUTPATIENT RECOMMENDATIONS * Reasonable to restart metformin prior to discharge as patient appears well controlled. Thank you.
[2016-11-15] MEDS ORDERED: FENTANYL CITRATE INJ 50 MCG/1 ML 2 ML VIAL ONE (12:05)
[2016-11-15] MEDS ORDERED: PROPOFOL IV EMULSION 10 MG/ML 20 ML VIAL IV ONE (12:05)
[2016-11-15] MEDS ORDERED: MIDAZOLAM HCL 1 MG/ML 2ML VIAL ONE (12:05)
[2016-11-15] MEDS ORDERED: ONDANSETRON INJ 2 MG/ML 2 ML VIAL ONE (12:05)
[2016-11-15] MEDS ORDERED: LIDOCAINE HCL 2% 2 ML VIAL (20MG/ML) ONE (12:05)
[2016-11-15] MEDS ORDERED: DEXAMETHASONE SOD INJ 4 MG/ML VIAL ONE (12:05)
[2016-11-15] MEDS ORDERED: NURSING VERBAL MED ORDER ONE (15:30)
--- NOTE | 2016-11-15 17:00 | Family Medicine Progress Note ---
Progress Note Date of Service Nov 15, 2016. Subjective Pt evaluation today including: conversation w/ patient, physical exam, chart review, lab review Pain: denied discomfort PO Intake: NPO for ortho procedure tomorrow AM Voiding: no voiding problems This AM pt denies feeling sob, or having cp. She also denies any abd pn, n/v, dysuria, JARA/dizziness. Diarrhea is improving with imodium. Reports hives from stress and anxiety triggered by surgery given hx of hives from stress/anxiety. She also reports similar sob episodes and tachycardia with anxiety and believes likely from anxiety. Constitutional: No fever Respiratory: No shortness of breath Cardiovascular: No chest pain Abdomen: + diarrhea, No pain, No nausea, No vomiting Musculoskeletal: No joint pain Neurologic: No problem reported Medications Current Inpatient Medications Medications (Trade) Dose Ordered Sig/Olegario Route Start Time Stop Time Status Last Admin Dose Admin Oxycodone HCl (Roxicodone Immediate Rel Tab) 1 TABLET FOR PAIN RATING... Q4H PRN PO 11/13/16 11:15 11/27/16 11:14 11/15/16 06:07 10 MG Oxycodone HCl (Oxycontin Tab) 10 mg Q12 PO 11/13/16 21:00 11/27/16 20:59 11/15/16 07:34 10 MG Morphine Sulfate (MoRPHine SULFATE INJ) 2 mg Q4H PRN IV 11/13/16 11:15 11/27/16 11:14 11/15/16 04:24 2 MG Acetaminophen (Tylenol Tab) 1,000 mg Q8H PO 11/13/16 14:00 12/13/16 13:59 11/15/16 07:35 1,000 MG Magnesium Hydroxide (Milk Of Magnesia Susp) 30 ml Q6H PRN PO 11/13/16 11:15 12/13/16 11:14 Bisacodyl (Dulcolax Supp) 10 mg DAILY PRN CO 11/13/16 11:15 12/13/16 11:14 Sodium Biphosphate/ Sodium Phosphate (Fleet Enema) 132 ml DAILY PRN CO 11/13/16 11:15 12/13/16 11:14 Senna (Senokot Tab) 17.2 mg HS PO 11/13/16 21:00 12/13/16 20:59 11/14/16 21:11 17.2 MG Diphenhydramine HCl (Benadryl Inj) 25 mg Q8H PRN IV 11/13/16 11:15 12/13/16 11:14 11/15/16 13:11 25 MG Al Hydrox/Mg Hydrox/Simethicone (Maalox Max Susp) 15 ml Q4H PRN PO 11/13/16 11:15 12/13/16 11:14 Zolpidem Tartrate (Ambien Tab) 5 mg HSZ PRN PO 11/13/16 11:15 12/13/16 11:14 Multivitamins (Multivitamin Tab) 1 tab QAM PO 11/14/16 09:00 12/14/16 08:59 11/15/16 07:37 1 TAB Ondansetron HCl (Zofran Inj) 4 mg Q6H PRN IV 11/13/16 11:15 12/13/16 11:14 11/14/16 20:27 4 MG Aspirin (Ecotrin Tab) 81 mg BID PO 11/13/16 21:00 12/13/16 20:59 11/15/16 07:35 81 MG Latanoprost (Xalatan Oph Soln) 1 drops HS OPB 11/13/16 21:00 12/13/16 20:59 11/14/16 21:11 1 DROPS Metoprolol Succinate (Toprol Xl Tab) 25 mg QPM PO 11/13/16 21:00 12/13/16 20:59 11/14/16 21:16 25 MG Potassium Chloride (Klor-Con M10) 10 meq BID PO 11/13/16 21:00 12/13/16 20:59 11/15/16 07:37 10 MEQ Ranitidine HCl (zANTac TAB) 150 mg DAILY PRN PO 11/13/16 11:15 12/13/16 11:14 11/15/16 08:11 150 MG Miscellaneous Information (Consult Glycemic Management Pharmacy) 1 ea UD PRN N/A 11/13/16 11:54 12/13/16 11:53 Insulin Aspart (novoLOG ASPART) SLIDING SCALE ACHS SC 11/13/16 12:30 12/13/16 12:29 11/15/16 07:45 4 UNITS Valsartan (Diovan Tab) 160 mg DAILY PO 11/14/16 09:00 12/14/16 08:59 11/15/16 07:36 160 MG Hydrochlorothiazide (Hydrochlorothiazide Tab) 12.5 mg DAILY PO 11/14/16 09:00 12/14/16 08:59 11/15/16 07:35 12.5 MG Loperamide HCl (Imodium Cap) 2 mg BID PRN PO 11/13/16 17:45 12/13/16 17:44 11/13/16 17:53 2 MG Esomeprazole Magnesium (Nexium) 40 mg BID@0800,1800 PO 11/14/16 08:00 12/14/16 07:59 11/15/16 16:03 40 MG Loratadine (Claritin Tab) 5 mg BID PO 11/15/16 21:00 12/15/16 20:59 Objective Vital Signs Date Time Temp Pulse Resp B/P (MAP) Pulse Ox O2 Delivery O2 Flow Rate FiO2 11/15/16 15:19 36.6 69 21 105/63 (77) 98 Nasal Cannula 3.0 11/15/16 12:15 37.0 72 20 128/65 95 Room Air 3.0 11/15/16 12:00 Nasal Cannula 3.0 11/15/16 11:18 37.2 72 20 106/63 (77) 97 Room Air 11/15/16 08:00 Nasal Cannula 3.0 11/15/16 07:17 37.0 72 20 128/65 (86) 95 Nasal Cannula 3.0 11/15/16 04:00 Nasal Cannula 4.0 11/15/16 03:52 36.8 69 80 99/58 (72) 96 Nasal Cannula 3.0 11/15/16 00:10 37.3 70 20 103/58 (73) 95 Oxymask 3.0 11/14/16 21:15 87 129/68 (88) 91 Mask 3.0 11/14/16 21:10 110 14 87 Mask 3.0 11/14/16 21:10 88 12 129/68 (88) 87 Mask 3.0 11/14/16 20:10 85 Room Air 11/14/16 20:10 36.9 95 113/64 (80) 85 Room Air 11/14/16 17:09 36.7 65 17 104/55 (71) 97 Room Air Physical Exam General Appearance: no apparent distress Respiratory/Chest: normal breath sounds, no respiratory distress, + rhonchi ( bilateral basilar rhonchi which disappeared after a few breaths) Cardiovascular: regular rate, rhythm Abdomen: normal bowel sounds, non tender, soft Extremities: non-tender, no pedal edema Neurologic/Psychiatric: alert, oriented x 3 Skin: + pertinent finding (b/l knee incisions healing well, dry) Laboratory Results 11/15/16 05:51 11/15/16 05:51 Test 11/14/16 22:15 11/15/16 05:51 11/15/16 11:17 Total Bilirubin 0.6 mg/dl (0.2-1) Aspartate Amino Transf (AST/SGOT) 16 U/L (15-37) Alanine Aminotransferase (ALT/SGPT) 17 U/L (12-78) Alkaline Phosphatase 32 U/L (45-117) Troponin I < 0.015 ng/ml (0-0.045) Total Protein 5.7 gm/dl (6.4-8.2) Albumin 3.0 gm/dl (3.4-5.0) Globulin 2.7 gm/dl (2.5-4.0) Albumin/Globulin Ratio 1.1 (0.9-2) Red Blood Count 3.31 M/uL (4.2-5.4) Mean Corpuscular Volume 94.0 fL (80-100) Mean Corpuscular Hemoglobin 31.1 pg (25-34) Mean Corpuscular Hemoglobin Concent 33.1 g/dl (32-36) RDW Standard Deviation 46.1 fL (36.4-46.3) RDW Coefficient of Variation 13.4 % (11.5-14.5) Mean Platelet Volume 9.2 fL (7.4-10.4) Anion Gap 6.0 mmol/L (3-11) Est Creatinine Clear Calc Drug Dose 46.8 ml/min Estimated GFR () 55.7 Estimated GFR (Non- 48.1 BUN/Creatinine Ratio 16.9 (10-20) Calcium Level 7.9 mg/dl (8.5-10.1) Bedside Glucose 120 mg/dl (70-90) Assessment and Plan 76y/o admitted for b/l total knee arthroplasty on 11/13. Inpt team consulted for hypoxia/tachycardia 11/15 (post op day 3), tachycardia resolved. Persistent hypoxia requiring 3L NC. PE suspected as pt not anticoagulated but could not be ruled out given inability to do a CTA for iodinated contrast allergy; however, venous doppler ruled out DVT. Pt clinically improved, feels better and believes related to her anxiety which is plausible but does not explain hypoxia. Hypoxia can be explained by atelectasis based on exam. SOB/hypoxia/tachycardia -continue to follow clinically -IS -safe for transfer to med surg ?afib -~5 beats of questionable afib on telemetry -outpt event monitor requested Resident Physician Supervision Note: I interviewed and examined the patient. Discussed with Dr. Reed and agree with findings and plan as documented in the note. Any exceptions or clarifications are listed here: None Documented By: Caden Valles feeling better no sob thought it was anxiety vitals noted nad breathing unlabored faint base R rales that clear with repeated breathing CP/SOB/hypoxia/tachycardia - she suspects anxiety, this is plausible except for hypoxia - but that's likely from atelectasis given exam -continue to follow clinically -IS -safe for med surg ?afib -~5 beats of questionable afib -outpt event monitor Resident Involvement: Resident Care Provided Care Provided: Adult Hospital Medicine
[2016-11-15] MEDS: LORATADINE 10 MG TAB PO SCH (20:48)
[2016-11-15] MEDS: LATANOPROST 0.005% OP SOLN 2.5 ML BTL OPB SCH (20:49)
[2016-11-15] MEDS: METOPROLOL SUCC 25MG EXT REL TAB PO SCH (20:50)
[2016-11-15] MEDS: SENNA 8.6 MG TAB PO SCH (20:50)
[2016-11-16] VITALS (13 sets, daily range): BP systolic 114–167; BP diastolic 65–77; PULSE 60–96; TEMP 36.3–37; O2SAT 92–100
[2016-11-16] MEDS ORDERED: NURSING VERBAL MED ORDER ONE ×2 (00:45→12:00)
[2016-11-16] MEDS: ACETAMINOPHEN 500 MG TAB PO SCH ×3 (05:37→21:48)
[2016-11-16] MEDS ORDERED: INSULIN ASPART 100 UNITS/ML 3 ML PEN SC SCH (06:00)
[2016-11-16] MEDS ORDERED: CEFAZOLIN IV 2,000 MG/60 ML D5W IV ONE (06:55)
[2016-11-16] MEDS ORDERED: BACITRACIN 50000 UNIT VIAL ONE (06:56)
[2016-11-16] MEDS ORDERED: MIDAZOLAM HCL 1 MG/ML 2ML VIAL ONE (06:57)
[2016-11-16] MEDS ORDERED: FENTANYL CITRATE INJ 50 MCG/1 ML 2 ML VIAL ONE (06:57)
[2016-11-16] MEDS ORDERED: NURSING VERBAL MED ORDER STA (06:58)
[2016-11-16] MEDS ORDERED: LIDOCAINE HCL 2% 2 ML VIAL (20MG/ML) ONE (07:04)
[2016-11-16] MEDS ORDERED: PROPOFOL IV EMULSION 10 MG/ML 20 ML VIAL IV ONE (07:04)
--- NOTE | 2016-11-16 07:48 | [facility] Operative Report ---
Operative Report Operative Date Nov 16, 2016. Pre-Operative Diagnosis Retained Drain Fragment Left Knee, Status Post Left Total Knee Arthroplasty Post-Operative Diagnosis Retained Drain Fragment Left Knee, Status Post Left Total Knee Arthroplasty Procedure(s) Performed Left Knee Arthrotomy, Removal of Retained Drain Fragment Surgeon Dr. Hamlin Mems Device Scientist Surgeon(s) GUNJAN Magaña Estimated Blood Loss 3 ml Findings Retained fragment of drain trapped in the patellofemoral articulation Specimens A. Retained Drain Fragment Left Knee Complication(s) None Disposition Recovery Room / PACU Indications Retained fragment of drain trapped in the patellofemoral space Description of Procedure After proper prepping draping the left lower extremity the incision was opened the medial parapatellar incision was opened the fragment frame was incarcerated in the patellofemoral joint was removed the deep and subsequent irrigated with 3 L of sterile saline solution of the medial parapatellar incision closed #1 Vicryl subcutaneous screws 2 Vicryl skin was closed with 3-0 running V lock and skin glue with readdressing a sterile compression dressing placed patient comes stable condition operative report dictated by Boubacar HOLLINS was necessary for prepping draping retraction wound closure defect is subcutaneous and skin was necessary for the case I attest to the content of the Intraoperative Record and any orders documented therein. Any exceptions are noted below.
[2016-11-16] MEDS ORDERED: METOCLOPRAMIDE HCL INJ 5 MG/ML 2 ML VIAL IV PRN (08:00)
[2016-11-16] MEDS ORDERED: ONDANSETRON INJ 2 MG/ML 2 ML VIAL IV PRN ×3 (08:00)
[2016-11-16] MEDS: ESOMEPRAZOLE MAGNESIUM 40 MG CAP PO SCH ×2 (08:00→17:34)
[2016-11-16] MEDS ORDERED: MAGNESIUM HYDROXIDE SUSP 30 ML UDC PO PRN (08:00)
[2016-11-16] MEDS ORDERED: CEFAZOLIN IV 1,000 MG in DEXTROSE 5% 50ML 50 ML IV SCH (08:00)
[2016-11-16] MEDS ORDERED: EpHEDrine SULFATE INJ 50 MG/ML AMP IV PRN ×2 (08:00)
[2016-11-16] MEDS ORDERED: DiphenhydrAMINE HCL 50 MG/ML VIAL IV PRN (08:00)
[2016-11-16] MEDS ORDERED: ZOLPIDEM TARTRATE 5 MG TAB PO PRN (08:00)
[2016-11-16] MEDS ORDERED: HYDROmorphone INJ 2 MG/ML SYR/VIAL IV PRN (08:00)
[2016-11-16] MEDS ORDERED: TRAMADOL HCL 50 MG TAB PO PRN (08:00)
[2016-11-16] MEDS ORDERED: ATROPINE SULFATE 0.1 MG/ML 5ML SYR IV PRN ×2 (08:00)
[2016-11-16] MEDS ORDERED: SOD PHOSPHATE/SOD BIPHOSPHATE ENEMA 132 ML BTL PR PRN (08:00)
[2016-11-16] MEDS ORDERED: ALUMINUM/MAGNESIUM/SIMETH (MAALOX MAX) 30 ML UDC PO PRN (08:00)
[2016-11-16] MEDS ORDERED: BISACODYL 10 MG SUPP PR PRN (08:00)
[2016-11-16] MEDS ORDERED: PHENYLEPHRINE 100MCG/ML 5ML SYR IV PRN ×2 (08:00)
[2016-11-16] MEDS ORDERED: ONDANSETRON INJ 2 MG/ML 2 ML VIAL ONE (08:03)
[2016-11-16] MEDS: HYDROmorphone INJ 2 MG/ML SYR/VIAL IV PRN ×4 (08:26→08:44)
[2016-11-16] MEDS: FERROUS GLUCONATE 324 MG TAB PO SCH ×3 (08:30→17:34)
[2016-11-16] MEDS ORDERED: HYDROmorphone INJ 1 MG/ML SYR ONE (08:47)
[2016-11-16] MEDS ORDERED: PANTOprazole SOD 40 MG TAB PO SCH (09:00)
--- NOTE | 2016-11-16 09:16 | Anesthesiology Progress Note ---
Anesthesia Post Op Note Date & Time Nov 16, 2016 at 09:16 Vital Signs Pain Intensity: 1 Vital Signs Past 12 Hours Date Time Temp Pulse Resp B/P (MAP) Pulse Ox O2 Delivery O2 Flow Rate FiO2 11/16/16 08:57 36.8 78 16 132/72 (92) 94 Nasal Cannula 2 11/16/16 08:51 70 14 11/16/16 08:51 68 14 140/78 97 11/16/16 08:46 71 16 141/72 96 11/16/16 08:46 72 16 11/16/16 08:41 73 16 11/16/16 08:41 74 14 143/75 98 11/16/16 08:36 65 10 140/78 98 11/16/16 08:36 68 10 11/16/16 08:35 73 6 99 11/16/16 08:35 74 6 11/16/16 08:31 147/80 11/16/16 08:30 69 11 100 11/16/16 08:30 71 11 11/16/16 08:26 152/93 11/16/16 08:25 79 9 100 11/16/16 08:25 75 9 11/16/16 08:21 150/80 11/16/16 08:20 76 15 11/16/16 08:20 76 15 100 11/16/16 08:16 157/76 11/16/16 08:15 93 11 95 11/16/16 08:15 36.6 98 16 157/76 (99) 91 Nasal Cannula 2 11/16/16 08:15 93 11 11/16/16 00:20 Nasal Cannula 3.0 11/15/16 23:56 36.7 69 16 110/63 (79) 95 Nasal Cannula 3.0 11/15/16 21:44 37.3 73 17 137/70 (92) 95 Nasal Cannula 3.0 Notes Mental Status: alert / awake / arousable, participated in evaluation Pt Amnestic to Procedure: Yes Nausea / Vomiting: adequately controlled Pain: adequately controlled Airway Patency, RR, SpO2: stable & adequate BP & HR: stable & adequate Hydration State: stable & adequate Anesthetic Complications: no major complications apparent
--- NOTE | 2016-11-16 09:21 | DIAGNOSTIC IMAGING REPORT ---
LEFT KNEE 1 OR 2 VIEWS ROUTINE CLINICAL HISTORY: Postoperative evaluation. COMPARISON: Left knee radiograph November 15, 2016. FINDINGS: Alignment of the left knee arthroplasty is anatomic. There is no periprosthetic fracture or unexpected radiopaque foreign body. The drain fragment shown on exam of November 15, 2016 is no longer visualized. IMPRESSION: 1. Interval removal of the drain fragment shown on prior exam. No unexpected radiopaque foreign bodies on this exam. 2. Status post total left knee arthroplasty. No periprosthetic fracture. Electronically signed by: Kwaku Hardy M.D. 11/16/2016 9:19 AM Dictated Date/Time: 11/16/2016 9:17 AM
[2016-11-16] MEDS: SODIUM CHLORIDE 0.9% 1000ML 1,000 ML IV SCH ×2 (09:40→17:34)
[2016-11-16] MEDS: ASPIRIN 81 MG ECTAB PO SCH ×2 (11:14→21:46)
[2016-11-16] MEDS: MULTIVITAMIN TAB PO SCH (11:14)
[2016-11-16] MEDS: POTASSIUM CHLORIDE 10 MEQ TABCR PO SCH ×2 (11:14→21:22)
[2016-11-16] MEDS: VALSARTAN 80 MG TAB PO SCH (11:15)
[2016-11-16] MEDS: HYDROCHLOROTHIAZIDE 25 MG TAB PO SCH (11:15)
[2016-11-16] MEDS: OXYCODONE HCL 10 MG TABCR (OXYCONTIN) PO SCH ×2 (11:20→21:22)
[2016-11-16] MEDS: LORATADINE 10 MG TAB PO SCH ×2 (11:44→21:21)
[2016-11-16] MEDS: DOCUSATE SODIUM 100 MG CAP PO SCH ×2 (11:45→21:22)
[2016-11-16] MEDS: RANITIDINE HCL 150 MG TAB PO PRN (11:45)
[2016-11-16] MEDS: INSULIN ASPART 100 UNITS/ML 3 ML PEN SC SCH ×3 (12:54→21:00)
[2016-11-16] MEDS: OXYCODONE HCL IR 5 MG TAB (IMMEDIATE RELEASE) PO PRN ×2 (13:14→23:22)
[2016-11-16] MEDS: CEFAZOLIN IV 2,000 MG in DEXTROSE 5% 50ML 50 ML IV SCH ×2 (16:57→23:23)
--- NOTE | 2016-11-16 19:00 | Family Medicine Progress Note ---
Progress Note Date of Service Nov 16, 2016. Subjective Pt evaluation today including: conversation w/ patient, physical exam, chart review, lab review Pain: no discomfort reported PO Intake: tolerating Voiding: no voiding problems This afternoon pt reports feeling well. No discomfort reported. Denies sob, cp, n/v, abd pain, dysuria. Constitutional: No fever Respiratory: No shortness of breath Cardiovascular: No chest pain Abdomen: No pain, No nausea, No vomiting Female : No dysuria Neurologic: No problem reported Medications Current Inpatient Medications Medications (Trade) Dose Ordered Sig/Olegario Route Start Time Stop Time Status Last Admin Dose Admin Oxycodone HCl (Roxicodone Immediate Rel Tab) 1 TABLET FOR PAIN RATING... Q4H PRN PO 11/13/16 11:15 11/30/16 11:14 11/16/16 13:14 5 MG Oxycodone HCl (Oxycontin Tab) 10 mg Q12 PO 11/13/16 21:00 11/30/16 20:59 11/16/16 11:20 10 MG Morphine Sulfate (MoRPHine SULFATE INJ) 2 mg Q4H PRN IV 11/13/16 11:15 11/27/16 11:14 11/15/16 04:24 2 MG Acetaminophen (Tylenol Tab) 1,000 mg Q8H PO 11/13/16 14:00 12/13/16 13:59 11/16/16 13:55 1,000 MG Magnesium Hydroxide (Milk Of Magnesia Susp) 30 ml Q6H PRN PO 11/13/16 11:15 12/13/16 11:14 Senna (Senokot Tab) 17.2 mg HS PO 11/13/16 21:00 12/13/16 20:59 11/15/16 20:50 17.2 MG Aspirin (Ecotrin Tab) 81 mg BID PO 11/13/16 21:00 12/13/16 20:59 11/16/16 11:14 81 MG Latanoprost (Xalatan Oph Soln) 1 drops HS OPB 11/13/16 21:00 12/13/16 20:59 11/15/16 20:49 1 DROPS Metoprolol Succinate (Toprol Xl Tab) 25 mg QPM PO 11/13/16 21:00 12/13/16 20:59 11/15/16 20:50 25 MG Potassium Chloride (Klor-Con M10) 10 meq BID PO 11/13/16 21:00 12/13/16 20:59 11/16/16 11:14 10 MEQ Ranitidine HCl (zANTac TAB) 150 mg DAILY PRN PO 11/13/16 11:15 12/13/16 11:14 11/16/16 11:45 150 MG Miscellaneous Information (Consult Glycemic Management Pharmacy) 1 ea UD PRN N/A 11/13/16 11:54 12/13/16 11:53 Valsartan (Diovan Tab) 160 mg DAILY PO 11/14/16 09:00 12/14/16 08:59 11/16/16 11:15 160 MG Hydrochlorothiazide (Hydrochlorothiazide Tab) 12.5 mg DAILY PO 11/14/16 09:00 12/14/16 08:59 11/16/16 11:15 12.5 MG Loperamide HCl (Imodium Cap) 2 mg BID PRN PO 11/13/16 17:45 12/13/16 17:44 11/13/16 17:53 2 MG Esomeprazole Magnesium (Nexium) 40 mg BID@0800,1800 PO 11/14/16 08:00 12/14/16 07:59 11/16/16 17:34 40 MG Loratadine (Claritin Tab) 5 mg BID PO 11/15/16 21:00 12/15/16 20:59 11/16/16 11:44 5 MG Sodium Chloride 1,000 ml @ 100 mls/hr Q10H IV 11/16/16 07:49 11/17/16 07:48 11/16/16 17:34 100 MLS/HR Magnesium Hydroxide (Milk Of Magnesia Susp) 30 ml Q6H PRN PO 11/16/16 08:00 12/16/16 07:59 Bisacodyl (Dulcolax Supp) 10 mg DAILY PRN [place] 11/16/16 08:00 12/16/16 07:59 Sodium Biphosphate/ Sodium Phosphate (Fleet Enema) 132 ml DAILY PRN [place] 11/16/16 08:00 12/16/16 07:59 Docusate Sodium (coLACE CAP) 100 mg BID PO 11/16/16 09:00 12/16/16 08:59 11/16/16 11:45 100 MG Diphenhydramine HCl (Benadryl Cap) 25 mg Q8H PRN PO 11/16/16 08:00 12/16/16 07:59 Diphenhydramine HCl (Benadryl Inj) 25 mg Q8H PRN IV 11/16/16 08:00 12/16/16 07:59 Al Hydrox/Mg Hydrox/Simethicone (Maalox Max Susp) 15 ml Q4H PRN PO 11/16/16 08:00 12/16/16 07:59 Zolpidem Tartrate (Ambien Tab) 5 mg HSZ PRN PO 11/16/16 08:00 12/16/16 07:59 Multivitamins (Multivitamin Tab) 1 tab QAM PO 11/16/16 09:00 12/16/16 08:59 11/16/16 11:14 1 TAB Ondansetron HCl (Zofran Inj) 4 mg Q6H PRN IV 11/16/16 08:00 12/16/16 07:59 Metoclopramide HCl (Reglan Inj) 10 mg Q6H PRN IV 11/16/16 08:00 12/16/16 07:59 Ferrous Gluconate (Ferrous Gluconate Tab) 324 mg TIDM PO 11/16/16 08:30 12/16/16 08:29 11/16/16 17:34 324 MG Tramadol HCl (Ultram Tab) 1 tablet for pain rating... Q4H PRN PO 11/16/16 08:00 12/16/16 07:59 Cefazolin Sodium 2000 mg/Dextrose 60 ml @ 100 mls/hr Q8H IV 11/16/16 16:00 11/17/16 00:35 11/16/16 16:57 100 MLS/HR Insulin Aspart (novoLOG ASPART) SLIDING SCALE ACHS SC 11/16/16 12:30 12/16/16 05:59 11/16/16 18:26 5 UNITS Objective Vital Signs Date Time Temp Pulse Resp B/P (MAP) Pulse Ox O2 Delivery O2 Flow Rate FiO2 11/16/16 17:21 96 96 Room Air Oxymask 11/16/16 15:39 36.8 77 17 145/65 (91) 98 Room Air 11/16/16 15:00 Nasal Cannula 2.0 11/16/16 12:30 36.9 65 16 115/69 (84) 97 Nasal Cannula 2.0 11/16/16 11:27 36.3 60 18 114/66 (82) 97 Nasal Cannula 7.0 11/16/16 10:27 61 16 122/66 (84) 93 2.0 11/16/16 10:21 94 Nasal Cannula 2.0 11/16/16 10:00 36.9 67 17 126/69 (88) 92 Nasal Cannula 4.0 11/16/16 09:25 36.4 71 16 139/68 (91) 94 Nasal Cannula 2.0 11/16/16 09:25 Nasal Cannula 2.0 11/16/16 09:17 74 7 87 11/16/16 09:17 73 7 11/16/16 09:16 139/71 11/16/16 09:12 72 17 11/16/16 09:12 71 17 91 11/16/16 09:11 121/58 11/16/16 09:07 72 16 11/16/16 09:07 72 16 86 11/16/16 09:06 122/70 11/16/16 09:02 79 10 93 11/16/16 09:02 79 10 11/16/16 09:01 132/72 11/16/16 08:57 72 8 96 11/16/16 08:57 36.8 78 16 132/72 (92) 94 Nasal Cannula 2 11/16/16 08:57 70 8 11/16/16 08:56 144/74 11/16/16 08:52 76 5 11/16/16 08:52 79 5 96 11/16/16 08:51 70 14 11/16/16 08:51 68 14 140/78 97 11/16/16 08:46 71 16 141/72 96 11/16/16 08:46 72 16 11/16/16 08:41 73 16 11/16/16 08:41 74 14 143/75 98 11/16/16 08:36 65 10 140/78 98 11/16/16 08:36 68 10 11/16/16 08:35 73 6 99 11/16/16 08:35 74 6 11/16/16 08:31 147/80 11/16/16 08:30 69 11 100 11/16/16 08:30 71 11 11/16/16 08:26 152/93 11/16/16 08:25 79 9 100 11/16/16 08:25 75 9 11/16/16 08:21 150/80 11/16/16 08:20 76 15 11/16/16 08:20 76 15 100 11/16/16 08:16 157/76 11/16/16 08:15 93 11 95 11/16/16 08:15 36.6 98 16 157/76 (99) 91 Nasal Cannula 2 11/16/16 08:15 93 11 11/16/16 00:20 Nasal Cannula 3.0 11/15/16 23:56 36.7 69 16 110/63 (79) 95 Nasal Cannula 3.0 11/15/16 21:44 37.3 73 17 137/70 (92) 95 Nasal Cannula 3.0 11/15/16 21:15 36.8 71 18 96 3.0 11/15/16 20:00 96 Nasal Cannula 3.0 11/15/16 19:11 36.8 71 20 109/58 (75) 96 Nasal Cannula 3.0 Physical Exam General Appearance: no apparent distress Eyes: normal inspection Respiratory/Chest: normal breath sounds, + rhonchi (bilateral lung bases improves with repeated breaths) Cardiovascular: regular rate, rhythm, no edema Abdomen: normal bowel sounds, non tender, soft Extremities: non-tender, no pedal edema Neurologic/Psychiatric: alert, oriented x 3 Laboratory Results Test 11/16/16 17:24 Bedside Glucose 129 mg/dl (70-90) Assessment and Plan 76y/o admitted for b/l total knee arthroplasty on 11/13. Inpt team consulted for hypoxia/tachycardia 11/15 (post op day 3), tachycardia resolved. PE initially suspected as pt not anticoagulated but could not be ruled out given inability to do a CTA for iodinated contrast allergy; however, venous doppler ruled out DVT. Pt clinically improved, feels better and believes related to her anxiety which is plausible but does not explain hypoxia. Hypoxia can be explained by atelectasis based on exam and hypoxia improving with repeated deep breaths when off O2. Hypoxia from atelectasis -Encourage IS - 5 breaths per hour -Wean oxygen as tolerated - atelectasis should improve once she leaves the hospital and is more active and may take a few days -Encourage activity ?afib -~5 beats of questionable afib on telemetry -outpt event monitor requested and script provided to nurse coordinatory At this time, we will sign off on patient. Feel free to contact us with any questions. Resident Physician Supervision Note: I interviewed and examined the patient. Discussed with Dr. Reed and agree with findings and plan as documented in the note. Any exceptions or clarifications are listed here: None Documented By: Caden Valles feeling fine not sob doing well overall but notes can't seem to wean O2 did well w PT no DEE vitals noted. pulse ox 95% just after turning off O2, then went up to 98% during lung exam (faint base rales that cleared with repeated deep breath) then dropped as low as 84% while sitting and resting without deep breaths on room air , then back up to 98% with ~5-6 repetitions of incentive spirometry on room air hypoxia - appearing entirely c/w atelectasis. continue IS, increase activity. O2 as needed to keep pulse ox above 92% but anticipate the ability to wean over coming days (d/w pt and given her relative lack of activity the last few days, might take until she's at rehab for activity/IS to be enough to persistently keep lungs open) question of afib - ~5 beats that appeared c/w afib (rate controlled) at 830 yesterday morning, nothing before and nothing since. no prior afib she's aware of. unclear if this was truly afib. event monitor and ongoing PCP f/u stable, we'll sign off for now, can be available as needed Resident Involvement: Resident Care Provided Care Provided: Adult Hospital Medicine
[2016-11-16] MEDS: LATANOPROST 0.005% OP SOLN 2.5 ML BTL OPB SCH (21:21)
[2016-11-16] MEDS: SENNA 8.6 MG TAB PO SCH (21:46)
[2016-11-16] MEDS: METOPROLOL SUCC 25MG EXT REL TAB PO SCH (21:47)
[2016-11-17] MEDS: SODIUM CHLORIDE 0.9% 1000ML 1,000 ML IV SCH (03:16)
[2016-11-17 03:22] VITALS: BP 109/64; PULSE 71; TEMP 37.4; O2SAT 94
[2016-11-17] MEDS: ACETAMINOPHEN 500 MG TAB PO SCH (05:47)
[2016-11-17 07:08] VITALS: BP 111/62; PULSE 78; TEMP 37.5; O2SAT 69
[2016-11-17 07:34] VITALS: O2SAT 97
[2016-11-17] MEDS: ESOMEPRAZOLE MAGNESIUM 40 MG CAP PO SCH (08:09)
[2016-11-17] MEDS: OXYCODONE HCL IR 5 MG TAB (IMMEDIATE RELEASE) PO PRN (08:15)
[2016-11-17] MEDS: OXYCODONE HCL 10 MG TABCR (OXYCONTIN) PO SCH (09:00)
[2016-11-17] MEDS: MULTIVITAMIN TAB PO SCH (09:02)
[2016-11-17] MEDS: FERROUS GLUCONATE 324 MG TAB PO SCH ×2 (09:02→12:49)
--- NOTE | 2016-11-17 09:02 | Orthopedic Progress Note ---
Orthopedic Progress Note Date of Service Nov 17, 2016. Subjective Additional Notes: Awake, alert. Having some pain in the left knee this AM. Nursing relates O2 sat drop to 69 this AM. Pt denies SOB, CP, LH, anxiety. States that she's had problems in the past with low Sats. At one point she had to go home with Home O2. She was supposed to get a w/u for sleep apnea but has put it off. No other complaints this AM. Med Service aware of O2 Sat drop. Objective calves soft nontender, N/V intact, dressing C/D/I (Left knee), incision C/D/I ( right knee), A&O x3, toes mobile Date Time Temp Pulse Resp B/P (MAP) Pulse Ox O2 Delivery O2 Flow Rate FiO2 11/17/16 08:42 Nasal Cannula 11/17/16 07:34 97 Nasal Cannula 2.0 11/17/16 07:08 37.5 78 16 111/62 (78) 69 Room Air 11/17/16 03:22 37.4 71 17 109/64 (79) 94 Room Air 11/16/16 23:30 Room Air 11/16/16 23:30 37.0 80 17 159/71 (100) 92 Room Air 11/16/16 21:50 84 95 Room Air 11/16/16 21:14 80 167/77 (107) 100 Room Air 11/16/16 19:45 36.8 79 17 154/75 (101) 97 Room Air 11/16/16 17:21 96 96 Room Air Oxymask 11/16/16 15:39 36.8 77 17 145/65 (91) 98 Room Air 11/16/16 15:00 Nasal Cannula 2.0 11/16/16 12:30 36.9 65 16 115/69 (84) 97 Nasal Cannula 2.0 11/16/16 11:27 36.3 60 18 114/66 (82) 97 Nasal Cannula 7.0 11/16/16 10:27 61 16 122/66 (84) 93 2.0 11/16/16 10:21 94 Nasal Cannula 2.0 11/16/16 10:00 36.9 67 17 126/69 (88) 92 Nasal Cannula 4.0 11/16/16 09:25 36.4 71 16 139/68 (91) 94 Nasal Cannula 2.0 11/16/16 09:25 Nasal Cannula 2.0 11/16/16 09:17 74 7 87 11/16/16 09:17 73 7 11/16/16 09:16 139/71 11/16/16 09:12 72 17 11/16/16 09:12 71 17 91 11/16/16 09:11 121/58 11/16/16 09:07 72 16 11/16/16 09:07 72 16 86 11/16/16 09:06 122/70 11/16/16 09:02 79 10 93 11/16/16 09:02 79 10 11/16/16 09:01 132/72 11/16/16 08:57 72 8 96 11/16/16 08:57 36.8 78 16 132/72 (92) 94 Nasal Cannula 2 11/16/16 08:57 70 8 11/16/16 08:56 144/74 Assessment & Plan Assessment: POD#3 SP BL TKAS Low O2 sats - was in Tele for w/u this visit. POD 1 s/p HV drain retrieval due drain being stuck in the joint and breaking upon extraction attempt. Plan: Wean O2 as able. Continue regular spirometry at bedside PT/OT Planning on [facility] per hospitalist service. Inhouse Planning Pain Management: Oxycontin, Ultram, PO Tylenol, Oxy IR DVT Prophylaxis: TEDs, SCDs, ASA Discharge Planning Discharge Planning: rehab hospital (PATIENT REQUESTING REFERRAL TO [facility].)
[2016-11-17] MEDS: POTASSIUM CHLORIDE 10 MEQ TABCR PO SCH (09:03)
[2016-11-17] MEDS: VALSARTAN 80 MG TAB PO SCH (09:03)
[2016-11-17] MEDS: HYDROCHLOROTHIAZIDE 25 MG TAB PO SCH (09:03)
[2016-11-17] MEDS: DOCUSATE SODIUM 100 MG CAP PO SCH (09:04)
[2016-11-17] MEDS: LORATADINE 10 MG TAB PO SCH (09:04)
[2016-11-17] MEDS: RANITIDINE HCL 150 MG TAB PO PRN (09:04)
[2016-11-17] MEDS: ASPIRIN 81 MG ECTAB PO SCH (09:04)
[2016-11-17] MEDS: INSULIN ASPART 100 UNITS/ML 3 ML PEN SC SCH ×2 (09:09→12:49)
--- NOTE | 2016-11-17 09:59 | Pharmacy Progress Note ---
Glycemic: Assessment & Plan Date of Service Nov 17, 2016. Assessment & Plan The patient is currently receiving 7 units of insulin per day. BSGs ranging 111 - 131 mg/dl over the past 24hrs. * Basal insulin: None * Correctional Insulin: Novolog Correction per scale ACHS Goal Range: Low 110 mg/dL - High 140 mg/dL Correction Factor: 30 mg/dL/unit * Prandial insulin: Per carb ratio of 1 unit per 10 grams CHO consumed BSGs continue to improve, no changes needed to inpatient regimen at this time. Since patient is only POD 1 s/p removal of retained drain fragment, will hold off on resuming metformin at this time. If po intake is reasonable and renal function ok, will consider resuming tomorrow. Pharmacy will continue to monitor patient daily and write orders per [facility] inpatient glycemic control protocol. Thanks. DISCHARGE RECOMMENDATIONS: * A1c acceptable, continue metformin 500 mg daily
[2016-11-17 10:38] VITALS: O2SAT 77
[2016-11-17 11:13] VITALS: O2SAT 95
[2016-11-17] MEDS ORDERED: ACET-24 PO (12:30)
[2016-11-17] MEDS ORDERED: SNK PO (12:30)
[2016-11-17] MEDS ORDERED: ASPI81TA28 PO (12:30)
[2016-11-17] MEDS ORDERED: OXYSR10 PO (12:30)
[2016-11-17] MEDS ORDERED: RXC5 PO (12:30)
[2016-11-17 12:50] VITALS: BP 111/62; PULSE 78; TEMP 37.5; O2SAT 95
--- NOTE | 2016-11-17 16:17 | Family Medicine Progress Note ---
Progress Note Date of Service Nov 17, 2016. Subjective Pt evaluation today including: conversation w/ patient, physical exam, chart review, lab review Pain: no discomfort reported PO Intake: tolerating Voiding: no voiding problems This afternoon Ms. Reina denied having any sob, cp, abd pn, n/v or JARA/dizziness Constitutional: No fever Respiratory: No shortness of breath Cardiovascular: No chest pain Abdomen: No pain, No nausea, No vomiting Neurologic: No problem reported Objective Vital Signs Date Time Temp Pulse Resp B/P (MAP) Pulse Ox O2 Delivery O2 Flow Rate FiO2 11/17/16 12:50 37.5 78 16 95 Room Air 11/17/16 11:13 95 Room Air 11/17/16 10:38 77 11/17/16 08:42 Nasal Cannula 11/17/16 07:34 97 Nasal Cannula 2.0 11/17/16 07:08 37.5 78 16 111/62 (78) 69 Room Air 11/17/16 03:22 37.4 71 17 109/64 (79) 94 Room Air 11/16/16 23:30 Room Air 11/16/16 23:30 37.0 80 17 159/71 (100) 92 Room Air 11/16/16 21:50 84 95 Room Air 11/16/16 21:14 80 167/77 (107) 100 Room Air 11/16/16 19:45 36.8 79 17 154/75 (101) 97 Room Air 11/16/16 17:21 96 96 Room Air Oxymask Physical Exam General Appearance: no apparent distress Eyes: normal inspection Respiratory/Chest: no respiratory distress, + rhonchi (bilatarel lower lung field rhonchi and decreased breath sounds which improve on repeated deep breaths ) Cardiovascular: regular rate, rhythm Abdomen: normal bowel sounds, non tender, soft Extremities: no pedal edema, + pertinent finding (Knees wrapped ) Neurologic/Psychiatric: alert, oriented x 3 Laboratory Results Test 11/17/16 12:11 Bedside Glucose 101 mg/dl (70-90) Assessment and Plan 76y/o admitted for b/l total knee arthroplasty on 11/13. Inpt team consulted for hypoxia/tachycardia 11/15 (post op day 3), tachycardia resolved. PE initially suspected as pt not anticoagulated but could not be ruled out given inability to do a CTA for iodinated contrast allergy; however, venous Doppler ruled out DVT. Pt clinically stable, and continues to believes related to her anxiety which does not explain hypoxia. Hypoxia caused by atelectasis based on exam finding of rhonchi decreasing with repeated breath sound and O2 sats improving with repeated deep breaths when off O2 and monitored on continuous pulse oximetry. Hypoxia from atelectasis -Encouraged IS - 5 breaths per hour -Encouraged activity especially once out of the hospital and at rehab -Sating well on RA during visit ?afib -~5 beats of questionable afib on telemetry -outpt event monitor script provided and nurse coordinator arranged for monitor [place] [facility] At this time, we will sign off on patient. Feel free to contact us with any questions. chart reviewed and case d/w dr anderson. pt discharged to rehab prior to my seeing her. care as above appearing appropriate and medically appeared stable for transfer to rehab. would w/u hypoxia further only if it was refractory and doesn't resolve w time and increased activity (see yesterday's notes) Resident Involvement: Resident Care Provided Care Provided: Adult Hospital Medicine
--- NOTE | 2016-11-26 09:23 | DISCHARGE SUMMARY ---
DISCHARGE DIAGNOSIS: Degenerative joint disease, bilateral knees. SECONDARY DIAGNOSES: Hypoxemia, type 2 diabetes, atrial fibrillation. CONSULTS: Dr. Moran. COMPLICATIONS: None. PROCEDURE: The patient underwent bilateral total knee arthroplasty by Dr. Hamlin on 11/13/2016. BRIEF HISTORY: Please see previously dictated history and physical. HOSPITAL SUMMARY: The patient was admitted on the above day for the above procedure. Procedure went without complication. Postop day 1, the patient was feeling well without complaints. She denied chest pain or shortness of breath. Vital signs were stable. She was afebrile. Dressing was clean, dry and intact. She was neurovascularly intact. Calves were soft and nontender. Hemovac drained 150 and 100 mL on the right and 125 and 100 mL on the left. Hemoglobin was 10.8. The patient began physical therapy per protocol. She is requesting referral to [facility]. Postop day 2, the patient continued to improve. She denied chest pain or shortness of breath. Vital signs were stable. She was afebrile. Incision was clean, dry and intact. She was neurovascularly intact. Calves were soft and nontender. Left Hemovac drain was snapped during removal at the hemoglobin was 10.3. The patient was made n.p.o. for arthrotomy and removal of foreign body the following day. Postop day 3, the patient was taken again to the OR for removal of her Hemovac drain. She tolerated this well. Vital signs were stable. She was afebrile. Dressing was clean, dry and intact. She was neurovascularly intact. Calves are soft and nontender. Postop day 4, the patient was having some mild pain in left knee. O2 sat up to 69. She denied chest pain, shortness of breath or lightheadedness. The patient states she has had problems with this in the past and had to go home O2 previously. She was recommended to have a workup for sleep apnea, but has not. Vital signs were stable, otherwise dressing was clean, dry and intact. She was neurovascularly intact. Calves were soft and nontender. The patient continued to progress with physical therapy. She was transferred to [facility] later that day in stable condition. For further review, please see the chart. Lab, x-ray data and discharge instructions as per chart. [facility]
== END 2016-11-17 13:45 | DRG 462 ==
LOC: C.ACU 05:13 → C.3E 06:45 → ENRESERV 11:21 → C.2T 11-14 22:21 → ENRESERV 11-14 22:27 → CANRESERV 11-15 20:05 → EDBEDREQSVC 11-15 20:11 → EDBEDREQ 11-15 20:11 → ENRESERV 11-15 20:35 → C.3E 11-15 21:34
PROVIDERS: ADMIT Orthopaedic Surgery; ATTEND Orthopaedic Surgery
PROC: 0SRC0J9 Replacement of Right Knee Joint with Synthetic Substitute, Cemented, Open Approach (ICD-10-PCS; principal; 2016-11-13 07:45)
PROC: 0SRD0J9 Replacement of Left Knee Joint with Synthetic Substitute, Cemented, Open Approach (ICD-10-PCS; principal; 2016-11-13 07:45)
PROC: 0SP Lower Joints, Removal (ICD-10-PCS; 2016-11-16)
DX: M17.0 Bilateral primary osteoarthritis of knee (principal); J98.11 Atelectasis; I26.99 Other pulmonary embolism without acute cor pulmonale; I10 Essential (primary) hypertension; E78.00 Pure hypercholesterolemia, unspecified; E11.9 Type 2 diabetes mellitus without complications; K21.9 Gastro-esophageal reflux disease without esophagitis; T81.89XA Other complications of procedures, not elsewhere classified, initial encounter; K44.9 Diaphragmatic hernia without obstruction or gangrene; M26.609 Unspecified temporomandibular joint disorder, unspecified side; Z79.899 Other long term (current) drug therapy; Z79.82 Long term (current) use of aspirin; Z79.84 Long term (current) use of oral hypoglycemic drugs; Y83.4 Other reconstructive surgery as the cause of abnormal reaction of the patient, or of later complication, without mention of misadventure at the time of the procedure; Y79.2 Prosthetic and other implants, materials and accessory orthopedic devices associated with adverse incidents; Y79.1 Therapeutic (nonsurgical) and rehabilitative orthopedic devices associated with adverse incidents; Y92.230 Patient room in hospital as the place of occurrence of the external cause; R00.0 Tachycardia, unspecified; R09.02 Hypoxemia; I48.91 Unspecified atrial fibrillation; R07.9 Chest pain, unspecified; F41.9 Anxiety disorder, unspecified; Z91.041 Radiographic dye allergy status

== ENCOUNTER → 2016-11-30 | Outpatient (CLI) | payer OTHER, MEDICARE ==
[~2016-11-30] MED LIST changes: -ACET-1311 PO; +ACET-24 PO; +OXYSR10 PO; +RXC5 PO; +SNK PO
--- NOTE | 2016-11-30 14:10 | DIAGNOSTIC IMAGING REPORT ---
PA and obliques chest (3 views) CLINICAL HISTORY: Abnormal chest x-ray COMPARISON STUDY: 11/14/2016 FINDINGS: 3 views of the chest are provided for interpretation. The heart is the upper limits of normal in size. There is no failure. There is no focal pulmonary consolidation. Supplemental views fail to confirm the presence of a right infrahilar mass. IMPRESSION: Supplemental views of the chest fail to confirm the presence of a right infrahilar mass. Electronically signed by: Francis Longo M.D. 11/30/2016 2:09 PM Dictated Date/Time: 11/30/2016 2:06 PM
== END | disposition home or self-care (01) ==
LOC: C.RAD 13:41
PROVIDERS: ATTEND Family Medicine
DX: R93.8 Abnormal findings on diagnostic imaging of other specified body structures (principal)